=== PATIENT | male | born 1950 | race Caucasian/White ===

== ENCOUNTER → 2018-04-21 | Outpatient (CLI) | payer MEDICARE | END | disposition home or self-care (01) | LOC: CVU 12:38 | PROVIDERS: ATTEND Internal Medicine Cardiovascular Disease | DX: I65.23 Occlusion and stenosis of bilateral carotid arteries (principal); I10 Essential (primary) hypertension; E78.5 Hyperlipidemia, unspecified; Z87.891 Personal history of nicotine dependence | CPT/HCPCS: 93880 ==

== ENCOUNTER → 2018-11-09 | Outpatient (CLI) | payer MEDICARE ==
[~2018-11-09] MED LIST: REGADENOSON 0.4 MG/5 ML SYRINGE ONE
== END | disposition home or self-care (01) ==
LOC: CFH 12:41
PROVIDERS: ATTEND Internal Medicine Cardiovascular Disease
DX: R00.0 Tachycardia, unspecified (principal)
CPT/HCPCS: 78452; 93017; A9502; J2785

== ENCOUNTER 2019-10-26 13:48 | Observation (INO) | payer MEDICARE ==
[~2019-10-26] VITALS: Ht 172.7 cm; Wt 91.0 kg
--- NOTE | 2019-10-26 14:22 | NUR ---
PT HAS CO CHEST PAIN AND SOB SINCE TUESDAY. SOB INCREASED W EXERTION. DENIES SWEATING OR RADIATION OF PAIN. DENIES N/V/D. PRESS SETUP OPERATOR APPLIED, PT NOT IN DISTRESS. RESP EVEN AND UNLABORED. LABS COMPLETE. HX HTN, HLD.
[2019-10-26] MEDS ORDERED: SODIUM CHLORIDE FLUSH 10ML SYR IVF ONE (14:30)
[2019-10-26 14:41] LABS: ALBUMIN 4.2 g/dL (3.4-5.0); ANION GAP 10 mmol/L (5-15); CALCIUM 8.8 mg/dL (8.5-10.1); CHLORIDE 109 mmol/L (98-107)
[2019-10-26 14:46] LABS: CREATININE 1.14 mg/dL (0.7-1.3); TROPONIN I < 0.015 ng/mL (0.000-0.045)
[2019-10-26 15:14] LABS: BASOPHILS # (AUTO) 0.02 x10^3/uL (0-0.1); BASOPHILS % (AUTO) 0 % (0-1); EOSINOPHILS # (AUTO) 0.19 x10^3/uL (0-0.4); EOSINOPHILS % (AUTO) 4 % (1-7); LYMPHOCYTES # (AUTO) 1.03 x10^3/uL (1-3.4); LYMPHOCYTES % (AUTO) 22 % (22-44); MD NO; MEAN CORPUSCULAR HEMOGLOBIN 33.4 pg (27.5-34.5); MEAN CORPUSCULAR HGB CONC 33.8 g/dL (33.2-36.2); MEAN CORPUSCULAR VOLUME 98.8 fL (81-97); MEAN PLATELET VOLUME 9.2 fL (7.4-10.4); MONOCYTES # (AUTO) 0.38 x10^3/uL (0.2-0.8); MONOCYTES % (AUTO) 8 % (2-9); NEUTROPHILS # (AUTO) 3.14 x10^3/uL (1.8-6.8); NEUTROPHILS % (AUTO) 66 % (42-75); PLATELET COUNT 173 x10^3/uL (130-400); RED BLOOD COUNT 4.73 x10^6/uL (4.38-5.82); RED CELL DISTRIBUTION WIDTH 14.6 % (9.4-14.8)
--- NOTE | 2019-10-26 15:30 | NUR ---
PT RESTING, VSS.
[2019-10-26] MEDS ORDERED: SODIUM CHLORIDE FLUSH 10ML SYR IVF PRN (16:00)
--- NOTE | 2019-10-26 16:09 | NUR ---
PT WANTING AMA BECAUSE HE DOESNT WANT TO STAY IN THE HOSPITAL FOR POSSIBLY 2 DAYS. PT WILLING TO DISCUSS W HOSPITALIST ABOUT STAY.
--- NOTE | 2019-10-26 16:27 | NUR ---
TASK RN: SPOKE WITH PT REGARDING AMA. ALSO EDUCATED PT THAT WE CAN'T TELL HIM EXACTLY HOW MANY DAYS HE'LL BE HERE. PT IRRITATED REGARDING "YOU HAVE DONE THE SAME STUFF HERE THAT THEY DID AT [facility]. I'M JUST IRRITATED ABOUT IT ALL. I WAS SUPPOSED TO BE HERE TO GET A STRESS TEST AND NOW I'M NOT GETTING IT RIGHT NOW." PT AGREED TO SPEAK WITH HOSPITALIST AND AGREED TO STAY.
--- NOTE | 2019-10-26 16:30 | NUR ---
PT AMUBLATED TO BATHROOM W STEADY GATE
[2019-10-26] MEDS ORDERED: hydrALAzine 20 MG/ML, 1ML ONE (16:55)
--- NOTE | 2019-10-26 16:58 | NUR ---
PT MEDICATED FOR HIGH BLOOD PRESSURE
[2019-10-26] MEDS ORDERED: POLYETHYLENE GLYCOL 17 GM PACKET PO PRN (17:00)
[2019-10-26] MEDS ORDERED: NITROGLYCERIN 0.4 MG BOTTLE (25 TABS) SL PRN (17:00)
[2019-10-26] MEDS ORDERED: DOCUSATE 100 MG CAPSULE PO PRN (17:00)
[2019-10-26] MEDS ORDERED: hydrALAzine 20 MG/ML, 1ML IVPush PRN (17:00)
[2019-10-26] MEDS ORDERED: morphine SULFATE 10 MG/ML, 1ML IVPush PRN (17:00)
[2019-10-26 17:12] LABS: BASOPHILS # (AUTO) 0.01 x10^3/uL (0-0.1); BASOPHILS % (AUTO) 0 % (0-1); EOSINOPHILS % (AUTO) 4 % (1-7); LYMPHOCYTES # (AUTO) 1.03 x10^3/uL (1-3.4); LYMPHOCYTES % (AUTO) 19 % (22-44); MD NO; MEAN CORPUSCULAR HEMOGLOBIN 33.1 pg (27.5-34.5); MEAN CORPUSCULAR HGB CONC 33.8 g/dL (33.2-36.2); MEAN CORPUSCULAR VOLUME 97.8 fL (81-97); MEAN PLATELET VOLUME 9.3 fL (7.4-10.4); MONOCYTES # (AUTO) 0.45 x10^3/uL (0.2-0.8); MONOCYTES % (AUTO) 8 % (2-9); NEUTROPHILS # (AUTO) 3.63 x10^3/uL (1.8-6.8); NEUTROPHILS % (AUTO) 68 % (42-75); PLATELET COUNT 170 x10^3/uL (130-400); RED BLOOD COUNT 4.76 x10^6/uL (4.38-5.82); RED CELL DISTRIBUTION WIDTH 15.1 % (9.4-14.8)
[2019-10-26] MEDS ORDERED: LISINOPRIL 20 MG TABLET ONE (18:05)
[2019-10-26] MEDS: LISINOPRIL 20 MG TABLET PO SCH ×2 (18:07→21:38)
--- NOTE | 2019-10-26 18:10 | NUR ---
DISCUSSED W FOR HTN, 205/100. OK TO GIVE LISINOPRIL 20 MG PER EMAR
--- NOTE | 2019-10-26 18:17 | NUR ---
REPORT TO PRITI
--- NOTE | 2019-10-26 18:29 | NUR ---
PT GIVEN MEAL TRAY. PT TACHY TO 140 W ACTIVITY
[2019-10-26] MEDS ORDERED: ENALAPRILAT 1.25 MG/ML, 1ML IV PRN (18:30)
[2019-10-26] MEDS ORDERED: LABETALOL 5MG/ML, 20ML ONE (18:51)
[2019-10-26] MEDS: LABETALOL 5MG/ML, 20ML IVPush PRN (18:54)
--- NOTE | 2019-10-26 18:56 | NUR ---
MEDICATED FOR BP PER ORDERS. 5 MG LABETALOL BP 195/110
[2019-10-26 19:38] VITALS: BP 168/105
[2019-10-26 20:28] LABS: TROPONIN I 0.089 ng/mL (0.000-0.045)
[2019-10-26 21:32] VITALS: BP 144/95
[2019-10-26] MEDS: ACETAMINOPHEN 325 MG TABLET PO PRN (21:36)
[2019-10-26] MEDS: ASPIRIN 81 MG TABLET EC PO SCH (21:37)
[2019-10-26] MEDS: ATORVASTATIN 80 MG TABLET PO SCH (21:37)
[2019-10-26] MEDS: TAMSULOSIN 0.4 MG CAP.ER.24H PO SCH (21:37)
[2019-10-26] MEDS: ZOLPIDEM 10MG TABLET PO PRN (21:37)
[2019-10-26] MEDS: ENOXAPARIN 40 MG/0.4 ML SQ SCH (21:37)
[2019-10-26] MEDS ORDERED: LISI-170 PO (22:27)
[2019-10-26] MEDS ORDERED: TAMS-11 PO (22:28)
[2019-10-26] MEDS ORDERED: ATOR80TA PO (22:28)
[2019-10-26] MEDS ORDERED: ASPI-496 PO (22:29)
[2019-10-26] MEDS ORDERED: ZOLP10TA PO (22:29)
[2019-10-27] VITALS (10 sets, daily range): BP systolic 124–186; BP diastolic 68–101
[2019-10-27] MEDS: ACETAMINOPHEN 325 MG TABLET PO PRN ×4 (02:47→21:12)
[2019-10-27 05:08] LABS: CHLORIDE 109 mmol/L (98-107)
[2019-10-27 05:26] LABS: ALANINE AMINOTRANSFERASE 69 U/L (12-78); ALBUMIN 3.8 g/dL (3.4-5.0); ALKALINE PHOSPHATASE 56 U/L (45-117); ANION GAP 13 mmol/L (5-15); BILIRUBIN,TOTAL 0.7 mg/dL (0.2-1.0); CALCIUM 8.8 mg/dL (8.5-10.1); CHOL/HDL RATIO 5.3; CHOLESTEROL, TOTAL 128 mg/dL (140-239); CREATININE 1.07 mg/dL (0.7-1.3); HDL CHOL % 19 % (26-37); HDL CHOLESTEROL (DIRECT) 24 mg/dL (40-60); LDL CHOLESTEROL,CALCULATED 57 mg/dL (54-169); LDL/HDL RATIO 2.4 (0.5-3.0); TRIGLYCERIDES 234 mg/dL (50-200); VLDL CHOLESTEROL 47 mg/dL (0-25)
[2019-10-27] MEDS ORDERED: ASPIRIN 81 MG TABLET EC PO SCH (06:00)
[2019-10-27 09:17] LABS: TROPONIN I 0.067 ng/mL (0.000-0.045)
[2019-10-27] MEDS: LABETALOL 5MG/ML, 20ML IVPush PRN (09:47)
[2019-10-27] MEDS ORDERED: REGADENOSON 0.4 MG/5 ML SYRINGE ONE (10:32)
[2019-10-27] MEDS ORDERED: METOPROLOL TARTRATE 25 MG TAB ONE (13:06)
[2019-10-27] MEDS: ISOSORBIDE MONONITRATE ER 30 MG TABLET PO SCH (13:18)
[2019-10-27] MEDS ORDERED: METOPROLOL TARTRATE 25 MG TAB PO ONE (13:30)
[2019-10-27] MEDS: ENOXAPARIN 40 MG/0.4 ML SQ SCH (21:00)
[2019-10-27] MEDS: ASPIRIN 81 MG TABLET EC PO SCH (21:00)
[2019-10-27] MEDS: METOPROLOL TARTRATE 25 MG TAB PO SCH (21:02)
[2019-10-27] MEDS: ATORVASTATIN 80 MG TABLET PO SCH (21:02)
[2019-10-27] MEDS: TAMSULOSIN 0.4 MG CAP.ER.24H PO SCH (21:02)
[2019-10-27] MEDS: ZOLPIDEM 10MG TABLET PO PRN (22:58)
[2019-10-28 00:53] VITALS: BP 102/54
[2019-10-28] MEDS: ACETAMINOPHEN 325 MG TABLET PO PRN (05:16)
[2019-10-28] MEDS: METOPROLOL TARTRATE 25 MG TAB PO SCH (05:17)
[2019-10-28 05:18] VITALS: BP 135/79
[2019-10-28 06:37] VITALS: BP 138/75
[2019-10-28] MEDS: ISOSORBIDE MONONITRATE ER 30 MG TABLET PO SCH (08:25)
[2019-10-28 08:49] LABS: TROPONIN I 0.022 ng/mL (0.000-0.045)
[2019-10-28] MEDS ORDERED: METO25TA35 PO (11:44)
[2019-10-28] MEDS ORDERED: ISOS30TA8 PO (11:44)
[2019-10-28] MEDS ORDERED: NITR0.4T28 SL (11:44)
== END 2019-10-28 12:20 | disposition home or self-care (01) ==
LOC: ED 15:07 → INTOOBSV 15:35 → EDIP 15:35 → 5SO 18:22 → DCLOUNGE 10-28 12:06
PROVIDERS: ADMIT Family Medicine; ATTEND Family Medicine
DX: R07.89 Other chest pain (principal); I16.0 Hypertensive urgency; I10 Essential (primary) hypertension; E78.5 Hyperlipidemia, unspecified; N40.0 Benign prostatic hyperplasia without lower urinary tract symptoms; G47.00 Insomnia, unspecified; E78.00 Pure hypercholesterolemia, unspecified; I20.0 Unstable angina; F10.10 Alcohol abuse, uncomplicated; M54.9 Dorsalgia, unspecified; G89.29 Other chronic pain; Z79.82 Long term (current) use of aspirin; Z79.899 Other long term (current) drug therapy
CPT/HCPCS: 36415; 78452; 80048; 80053; 80061; 82040; 83036; 83880; 84484; 85025; 93005; 93017; 93306; 96372; 96374; 96375; 96376; 99285; A9502; C9898; G0378; J0360; J1650; J2785

== ENCOUNTER → 2019-11-27 | Outpatient (CLI) | payer MEDICARE ==
[~2019-11-27] MED LIST changes: +ASPI-496 PO; +ATOR80TA PO; +ISOS30TA8 PO; +LISI-170 PO; +METO25TA35 PO; +NITR0.4T28 SL; -REGADENOSON 0.4 MG/5 ML SYRINGE ONE; +TAMS-11 PO; +ZOLP10TA PO
[2019-11-27 10:32] LABS: ALBUMIN 4.2 g/dL (3.4-5.0); ANION GAP 5 mmol/L (5-15); CALCIUM 8.9 mg/dL (8.5-10.1); CHLORIDE 113 mmol/L (98-107)
[2019-11-27 11:02] LABS: ALANINE AMINOTRANSFERASE 61 U/L (12-78); ALKALINE PHOSPHATASE 57 U/L (45-117); BILIRUBIN,TOTAL 0.4 mg/dL (0.2-1.0); CHOL/HDL RATIO 4.4; CHOLESTEROL, TOTAL 155 mg/dL (140-239); CREATININE 1.18 mg/dL (0.7-1.3); HDL CHOL % 23 % (26-37); HDL CHOLESTEROL (DIRECT) 35 mg/dL (40-60); LDL CHOLESTEROL,CALCULATED 88 mg/dL (54-169); LDL/HDL RATIO 2.5 (0.5-3.0); TOTAL PROTEIN 7.9 g/dL (6.4-8.2); TRIGLYCERIDES 162 mg/dL (50-200); VLDL CHOLESTEROL 32 mg/dL (0-25)
== END | disposition home or self-care (01) ==
LOC: CVU 09:15
PROVIDERS: ATTEND Internal Medicine Cardiovascular Disease
DX: I65.23 Occlusion and stenosis of bilateral carotid arteries (principal); E78.2 Mixed hyperlipidemia; R07.9 Chest pain, unspecified; I10 Essential (primary) hypertension; Z87.891 Personal history of nicotine dependence
CPT/HCPCS: 36415; 80053; 80061; 93880

== ENCOUNTER 2020-12-26 09:41 | Outpatient (CLI) | payer MEDICARE ==
[2020-12-26 10:16] LABS: ALANINE AMINOTRANSFERASE 44 U/L (12-78); ANION GAP 9 mmol/L (5-15); CALCIUM 8.7 mg/dL (8.5-10.1); CHLORIDE 106 mmol/L (98-107); CHOLESTEROL, TOTAL 123 mg/dL (140-239); CREATININE 1.08 mg/dL (0.7-1.3)
[2020-12-26 10:19] LABS: ALKALINE PHOSPHATASE 50 U/L (45-117); BILIRUBIN,TOTAL 0.6 mg/dL (0.2-1.0); CHOL/HDL RATIO 3.2; HDL CHOL % 32 % (26-37); HDL CHOLESTEROL (DIRECT) 39 mg/dL (40-60); LDL CHOLESTEROL,CALCULATED 46 mg/dL (54-169); LDL/HDL RATIO 1.2 (0.5-3.0); TOTAL PROTEIN 7.5 g/dL (6.4-8.2); TRIGLYCERIDES 192 mg/dL (50-200); VLDL CHOLESTEROL 38 mg/dL (0-25)
== END 2020-12-26 23:59 | disposition home or self-care (01) ==
LOC: CVU 09:41
PROVIDERS: ATTEND Internal Medicine Cardiovascular Disease
DX: I08.0 Rheumatic disorders of both mitral and aortic valves (principal); E78.2 Mixed hyperlipidemia; I10 Essential (primary) hypertension; I65.23 Occlusion and stenosis of bilateral carotid arteries; R07.9 Chest pain, unspecified
CPT/HCPCS: 36415; 80053; 80061; 93306; 93356